=== PATIENT | female | born 1960 | race Caucasian/White ===

== ENCOUNTER → 2016-08-24 | Outpatient (CLI) | payer BC ==
[~2016-08-24] MED LIST: BENZOCAINE ONE 20% MUCOSAL SPRAY.; IV NORMAL SALINE 1000ML BAG 1,000 ML ONE; MIDAZOLAM HCL/PF 2 MG/2 ML VIAL. ONE; fentaNYL PF VIAL 100 MCG/2 ML VIAL ONE
--- NOTE | 2016-08-24 15:23 | PCVCIMAG ---
APPROVED REPORT Study performed: 08/24/2016 09:36:23 EXAM: Comprehensive 2D, Doppler, and color-flow Echocardiogram Other Information Study Quality: Adequate Indications Atrial Fibrillation Pre-ablation LASHONDA Procedure After obtaining informed consent, patient underwent transesophageal echo in the [facility]. Type of Sedation : Conscious Sedation Sedation was administered by Nurse. Transesophageal probe was inserted and advanced into esophagus without difficulty by Jaime Vang MD. The LASHONDA was performed without complications. Throughout the procedure, the blood pressure, pulse oximetry, cardiac rhythm, and rate were monitored. The patient tolerated the procedure without adverse effects. Recovery from conscious sedation was uneventful and vital signs were stable. Left Ventricle The left ventricle is normal size. There is normal LV segmental wall motion. There is normal left ventricular wall thickness. The left ventricular systolic function is normal. The left ventricular ejection fraction is within the normal range. LVEF is 55-60%. Right Ventricle The right ventricle is normal size. The right ventricular systolic function is normal. Atria The left atrium size is normal. No thrombus is visualized in the left atrium or appendage. Interatrial septum is intact without evidence of ASD or PFO. Negative bubble study. The right atrium size is normal. Aortic Valve The aortic valve is normal in structure. Trace aortic insufficiency Mitral Valve The mitral valve is normal in structure. Mild mitral regurgitation. Tricuspid Valve The tricuspid valve is normal in structure. Pulmonic Valve The pulmonary valve is normal in structure. Great Vessels The aortic root is normal in size. Pericardium There is no pericardial effusion. <Conclusion> The left ventricular systolic function is normal. There is normal LV segmental wall motion. LVEF 55-60%. The left atrium size is normal. No thrombus is visualized in the left atrium or appendage. The aortic valve is normal in structure, trileaflet. Trace aortic insufficiency The mitral valve is normal in structure. Mild mitral regurgitation. There is no pericardial effusion.
== END ==
LOC: PCVCINTER 08:53
PROVIDERS: ATTEND Internal Medicine
DX: I48.0 Paroxysmal atrial fibrillation (principal); I34.0 Nonrheumatic mitral (valve) insufficiency; I35.1 Nonrheumatic aortic (valve) insufficiency; I10 Essential (primary) hypertension; K21.9 Gastro-esophageal reflux disease without esophagitis; M19.90 Unspecified osteoarthritis, unspecified site; M10.9 Gout, unspecified; E66.01 Morbid (severe) obesity due to excess calories; Z88.1 Allergy status to other antibiotic agents; Z91.040 Latex allergy status; Z79.899 Other long term (current) drug therapy
CPT/HCPCS: 93312; 93325; 99152; J2250; J3010; J7030

== ENCOUNTER → 2016-08-31 | Outpatient (CLI) | payer BC ==
--- NOTE | 2016-08-31 14:50 | PCVCIMAG ---
EXAM: BILATERAL LOWER EXTREMITY VENOUS DUPLEX INDICATION: Leg pain and swelling. Small pulmonary embolus seen on CTA of the chest yesterday. FINDINGS: Right leg: No thrombus in the common femoral, main femoral, or popliteal veins. These veins are compressible. Incidental note is made of a 1.0 x 1.5 x 1.6 cm right popliteal cyst. Left leg: No thrombus in the common femoral or main femoral veins. There is a moderate amount of nonocclusive thrombus in the lower popliteal vein and extending into the upper calf veins. IMPRESSION: Moderate nonocclusive thrombus lower left popliteal vein and extending into the upper left calf veins, specifically the posterior tibial veins. No evidence of deep venous thrombosis in the right lower extremity. LOC:[id number]
== END | disposition home or self-care (01) ==
LOC: PCVCIMAG 10:19
PROVIDERS: ATTEND Nuclear Medicine Nuclear Cardiology
DX: I82.4Z2 Acute embolism and thrombosis of unspecified deep veins of left distal lower extremity (principal)
CPT/HCPCS: 93970